=== PATIENT | female | born 1955 | race Caucasian/White ===

== ENCOUNTER 2023-08-06 17:40 | Emergency (ER) | payer MEDICARE, OTHER, SELFPAY ==
--- NOTE | ~2023-08-06 | XR_ITS ---
EXAMINATION: XR wrist RT min 3V DATE: 08/06/2023 19:10 INDICATION: Right wrist pain, swelling and erythema TECHNIQUE: Posteroanterior, ulnar deviation, oblique, and lateral views of the right wrist were obtai iker. COMPARISON: none FINDINGS: Alignment is normal. No fracture. 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 Additional mild osteoarthritis at the triscaphe, first carpometacarpal joints. No erosions to sugges t inflammatory arthritis. Soft tissues are unremarkable. IMPRESSION: 1. 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 Reviewed, dictated and finalized at location A.
[2023-08-06 17:55] VITALS: BP 144/80; PULSE 74; RESP 19; TEMP 36.3; O2SAT 94
--- NOTE | 2023-08-06 18:45 | ED.GENADULT ---
HPI - General Adult General Chief complaint: Wound/Laceration <YARED Rosas Last Filed: 08/06/23 18:54> Stated complaint: infection <YARED Rosas Last Filed: 08/06/23 18:54> Time Seen by Provider: 08/06/23 18:45 <YARED Rosas Last Filed: 08/06/23 18:54> Focused HPI: Patient is a 67 y/o female who presents to the ED with c/o right hand pain and swelling. Patient reports over the last 2-3 days, she has had pain, redness, swelling in her R hand, states the redness has begun to radiate up her wrist/arm. Denies any wound or injuries. Unsure if she has an infection. Denies previous hx of arthritis/carpal tunnel syndrome. 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 Denies paresthesias, numbness/tingling in fingers. Denies fevers. Patient also reports she was diagnosed with a bladder infection today, Rx'd Keflex, has not started this yet. GENERAL: Well-appearing, well-nourished, and in no acute distress. HEAD: Normocephalic, atraumatic. CHEST: Clear to auscultation. ?No respiratory distress. HEART: Regular rate and rhythm.? MSK: TTP and mild swelling/redness/warmth noted to distal ulnar region/hypothenar eminence on palmar surface. Small area of streaking erythema to distal ventral forearm. Discomfort reported with Phalen testing. No significant pain with carpal compression testing. Sensation intact throughout fingers. Capillary refill <2seconds. NEURO: ?Alert and oriented x3. Patient screened in triage and initial orders placed.? ?Additional care and disposition to be based upon?diagnostic testing and treatment. <YARED Rosas Last Filed: 08/06/23 18:54> Focused HPI: Patient is a 67 y/o female who presents to the ED with c/o right hand pain and swelling. Patient reports over the last 2-3 days, she has had pain, redness, swelling in her R hand, states the redness has begun to radiate up her wrist/arm. Denies any wound or injuries. Unsure if she has an infection. Denies previous hx of arthritis/carpal tunnel syndrome. 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 Denies paresthesias, numbness/tingling in fingers. Denies fevers. 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 Patient also reports she was diagnosed with a bladder infection today, Rx'd Keflex, has not started this yet. GENERAL: Well-appearing, well-nourished, and in no acute distress. HEAD: Normocephalic, atraumatic. CHEST: Clear to auscultation. ?No respiratory distress. HEART: Regular rate and rhythm.? MSK: TTP and mild swelling/redness/warmth noted to distal ulnar region/hypothenar eminence on palmar surface. Small area of streaking erythema to distal ventral forearm. Discomfort reported with Phalen testing. No significant pain with carpal compression testing. Sensation intact throughout fingers. Capillary refill <2seconds. NEURO: ?Alert and oriented x3. Patient screened in triage and initial orders placed.? ?Additional care and disposition to be based upon?diagnostic testing and treatment. <Terra Oliver MD - Last Filed: 08/06/23 20:09> Source: patient <Jennifer Ham PA-C - Last Filed: 08/06/23 18:54> Mode of arrival: ambulatory <Jennifer Ham PA-C - Last Filed: 08/06/23 18:54> Limitations: no limitations <Jennifer Ham PA-C - Last Filed: 08/06/23 18:54> Related Data Allergies/adverse reactions: Allergies Allergy/AdvReac Type Severity Reaction Status Date / Time Penicillins Allergy Rash Verified 08/06/23 17:43 naproxen [From Aleve] AdvReac Palpitation Verified 08/06/23 17:43 s <Jennifer Ham PA-C - Last Filed: 08/06/23 18:54> Review of Systems Review of Systems: All systems are reviewed and are negative unless stated otherwise in the HPI. <Terra Oliver MD - Last Filed: 08/06/23 20:09> Exam Narrative: General: Alert, awake, afebrile, in no acute distress. Cardiovascular: Regular rate and rhythm, no murmurs, rubs or gallops, no peripheral
[2023-08-06 19:02] LABS: Basophils Percent Auto 0.5 % (0.2-1.2); Eosinophils Percent Auto 0.6 % (0-4.4); Hematocrit 40.1 % (37.0-47.0); Hemoglobin 13.1 g/dL (12.0-15.0); Immature Granulocyte Absolute 0.03 K/mm3 (0.00-0.031); Immature Granulocyte Percent A 0.5 % (0-0.5); Lymphocytes Absolute Auto 0.99 K/mm3 (0.9-3.2); Lymphocytes Percent Auto 14.9 % (18.3-44.2); Mean Corpuscular HGB Conc 32.7 g/dl (32-36); Mean Corpuscular Hemoglobin 30.3 pg (26-34); Mean Corpuscular Volume 92.8 fl (80-100); Mean Platelet Volume 9.3 fl (7.4-10.4); Monocytes Absolute Auto 0.4 K/mm3 (0.1-0.6); Monocytes Percent Auto 6.2 % (2.6-8.5); Neutrophils Absolute Auto 5.1 K/mm3 (1.3-6.7); Neutrophils Percent Auto 77.3 % (45.5-73.1); Platelet Count Result 209 k/mm3 (150-375); Red Blood Count 4.32 M/mm3 (4.2-5.4); Red Cell Distribution Width 12.5 % (11.5-14.5); White Blood Count 6.6 K/mm3 (4.5-10.0)
[2023-08-06 19:17] LABS: Alanine Aminotransferase 30 U/L (6-35); Albumin Level 4.7 g/dL (3.5-5.1); Alkaline Phosphatase 117 U/L (38-126); Anion Gap 4 mmol/L (4-12); Aspartate Amino Transferase 30 U/L (14-36); Bilirubin,Total 0.5 mg/dL (0.2-1.3); Blood Urea Nitrogen 12 mg/dL (7-17); CRP 1.3 mg/dL (<1.0); Calcium 10.3 mg/dL (8.4-10.2); Carbon Dioxide 27 mmol/L (22-30); Chloride 107 mmol/L (98-107); Estimated CRCL calculation 78 ml/min; Estimated Glomerular Filt Rate > 60; Glucose 100 mg/dL (65-110); Sodium 138 mmol/L (137-145)
[2023-08-06 19:27] LABS: Erythrocyte Sedimentation Rate 23 mm/hr (0-20)
[2023-08-06] MEDS: methylPREDNISolone SOD SUCC 125 MG VIAL IM (20:22)
[2023-08-06 20:28] VITALS: PULSE 86; RESP 16; O2SAT 98
== END 2023-08-06 20:29 | disposition home or self-care (01) ==
LOC: ANHED 20:01
PROVIDERS: Physician Assistant; Emergency Provider Emergency Medicine
DX: M11.231 Other chondrocalcinosis, right wrist (principal)
CPT/HCPCS: 36415; 73110; 80053; 85025; 85652; 86140; 96372; 99283; J2919